=== PATIENT | female | born 1950 | race Caucasian/White ===

== ENCOUNTER → 2016-08-01 | Outpatient (CLI) | payer OTHER ==
[~2016-08-01] MED LIST: MULT-974 PO; OMEP20CA12 PO
--- OUTSIDE RECORDS SUMMARY | 2016-08-01 09:31 | XMS REPORT | Continuity of Care Document ---
Author Author [facility] Organization [facility] Address Unknown Phone Unavailable Support Name Relationship Address Phone ANAND CLAUDIO MD Caregiver [address], [address] [place], [place] [phone] REJI OSCAR Next Of Kin [address] [place] [address] Insurance Providers Payer Name Policy Number Subscriber Name Relationship R [id number] Shirlene Oscar 20 Self / Same As Patient Advance Directives Directive Response Recorded Date/Time Advance Directives No 07/13/14 7:25am Health Care Power of Director [employer] No 07/13/14 7:25am Resuscitation Status Full Code 07/13/14 7:25am Problems No known problems or medical conditions. Medications Medication Dose Route Sig Days/Qty Instructions Order Date Discontinued Date Status Omeprazole 20 Mg PO DAILY 30 Qty 07/13/14 07/13/14 Discontinued Multivitamin 1 Each PO DAILY 07/13/14 Active Social History Social History Problem Response Recorded Date/Time Recent Foreign Travel No 07/13/2014 7:25am Smoking Status Never a Smoker 07/13/2014 7:30am Do you dip or chew tobacco? No 07/13/2014 7:30am Query Response Start Date Stop Date Smoking Status Never a Smoker Hospital Discharge Instructions No hospital discharge instructions. Plan of Care No plan of care. Functional Status No functional status results. Allergies, Adverse Reactions, Alerts Allergen Type Severity Reaction Status Last Updated No Known Drug Allergies Active 07/13/14 Immunizations No immunization records. Vital Signs Acute Vital Signs Vital Response Date/Time Temperature (Fahrenheit) 97.4 degrees F (97.6 - 99.5) Temperature (Calculated Celsius) 36.37251 degrees C (36.4 - 37.5) Temperature Source Tympanic Pulse Rate (adult) 56 bpm (60 - 90) Respiratory Rate 18 bpm (12 - 24) O2 Sat by Pulse Oximetry 98 % (88 - 100) Blood Pressure 116/59 mm Hg Pain Pain Intensity 0 Height (Feet) 5 feet Height (Inches) 2.00 inches Height (Calculated Centimeters) 157.390408 cm Weight (Pounds) 182 pounds Weight (Calculated Grams) 24929.812 gm Weight (Calculated Kilograms) 82.141709 kilograms Height 5 ft 2 in Weight 182 lb Body Mass Index 33.3 kg/m^2 Results No known relevant diagnostic tests, laboratory data and/or discharge summary. Procedures Procedure Status Date Provider(s) Diagnostic colonoscopy completed 07/13/14 NAAND CLAUDIO MD Esophagogastroduodenoscopy (EGD) completed 07/13/14 ANAND CLAUDIO MD Encounters Encounter Location Date/Time Registered [facility] 07/13/14 6:48am Registered Clinic [facility] 07/08/14 5:59am
--- NOTE | 2016-08-01 19:27 | Diagnostic Imaging Report ---
Bilateral screening mammogram. The current study was also evaluated with a Computer Aided Detection (CAD) system. INDICATION: Screening. No current complaints stated on the questionnaire. COMPARISON: 07/13/2015. FINDINGS: The breasts are composed of scattered fibroglandular densities. There are scattered benign-appearing calcifications. Allowing for technique and positional differences, no suspicious change is seen. IMPRESSION: No significant change. ACR BI-RADS Category 2: Benign findings. Result letter will be mailed to the patient. Note: At least 10% of breast cancer is not imaged by mammography. Dictated by: Dictated on workstation # [id number]
== END ==
LOC: RAD 09:27
PROVIDERS: ATTEND Nurse Practitioner Family
DX: Z12.31 Encounter for screening mammogram for malignant neoplasm of breast (principal)

== ENCOUNTER → 2017-08-14 | Outpatient (CLI) | payer MEDICARE, OTHER ==
--- NOTE | 2017-08-14 20:33 | Diagnostic Imaging Report ---
Digital mammogram bilateral screening This study was compared to the prior exam of 08/01/2016 to 02/11/2013. At this time, there are no current complaints. The current study was also evaluated with a Computer Aided Detection (CAD) system. The breasts do seem smaller than on the prior exam. Correlation with the patient's weight loss history would be recommended. There are scattered fibroglandular densities in both breasts which could obscure a lesion. In the medial aspect of the right breast approximately 4-5 MM from the nipple there is a small 4-5 MM linear area of increased density. There may be a corresponding area of increased density on the MLO view. The tomographic views are not convincing for malignancy in this area. Even so, I would recommend that a compression view of this area be obtained in the CC and ML projections for further study. Ultrasound of this portion of the breast should also be performed. The left breast is unchanged. IMPRESSION: Additional mammographic views and ultrasound of the right breast recommended for further study. ACR BI-RADS Category 0: Incomplete. (Needs additional imaging evaluation). Result letter will be mailed to the patient. Note: At least 10% of breast cancer is not imaged by mammography. Dictated by: Dictated on workstation # [id number]
== END ==
LOC: RAD 09:56
PROVIDERS: ATTEND Nurse Practitioner Family
DX: Z12.31 Encounter for screening mammogram for malignant neoplasm of breast (principal)
CPT/HCPCS: 77067

== ENCOUNTER → 2017-09-04 | Outpatient (CLI) | payer MEDICARE, OTHER ==
--- NOTE | 2017-09-04 14:44 | Diagnostic Imaging Report ---
Procedure; Digital mammogram, right diagnostic. Indication: Annual screening mammogram. The screening mammogram performed on 08/14/2017 noted a small 4-5 mm linear area of increased density in the medial aspect of the right breast. This finding is not as conspicuous on the compression view and this density cannot be identified with certainty on the true lateral view. This may be secondary to fibroglandular tissue. Even so, I would recommend ultrasound be performed for further study. Impression: Ultrasound was recommended for further evaluation of the right breast. ACR BI-RADS Category 0: Incomplete. (Needs additional imaging evaluation). Result letter will be mailed to the patient. Note: At least 10% of breast cancer is not imaged by mammography. Dictated by: Dictated on workstation # [id number]
== END ==
LOC: RAD 13:44
PROVIDERS: ATTEND Family Medicine
DX: R92.8 Other abnormal and inconclusive findings on diagnostic imaging of breast (principal)

== ENCOUNTER → 2017-10-17 | Outpatient (CLI) | payer MEDICARE, OTHER ==
--- NOTE | 2017-10-17 15:40 | Diagnostic Imaging Report ---
INDICATION: Cramping and vaginal bleeding. TECHNIQUE: Transabdominal and transvaginal pelvic sonography was performed. FINDINGS: The uterus measures 7.7 x 6.3 x 4.8 cm. The endometrial canal is distended by complex fluid, consistent with hematometra. No definite myometrial mass is seen. A discrete endometrial mass is not visualized. The ovaries were not visualized. There is a small amount of free fluid in the right adnexa. IMPRESSION: Complex fluid significantly distends the endometrial canal consistent with hematometra. This is likely owing to blood products. This could be owing to a cervical stenosis. Dictated by: Dictated on workstation # [id number]
== END ==
LOC: RAD 13:47
PROVIDERS: ATTEND Family Medicine
DX: N93.9 Abnormal uterine and vaginal bleeding, unspecified (principal)
CPT/HCPCS: 76830; 76856

== ENCOUNTER → 2018-02-06 | Outpatient (CLI) | payer MEDICARE, OTHER ==
--- NOTE | 2018-02-06 20:04 | Diagnostic Imaging Report ---
INDICATION: Right breast density. Patient presents for six-month followup. COMPARISON: Correlation is made with prior mammograms from 08/14/2017 and 09/04/2017. TECHNIQUE: 2D and 3D unilateral right diagnostic mammography was performed with computer-aided Detection (CAD) system. FINDINGS: There are scattered densities in the right breast. The area of density noted on the right MLO view is less prominent on today's study. This has the appearance of fibroglandular tissue. No mass is identified. Benign calcifications in the right breast are noted. Right axilla is unremarkable. IMPRESSION: Stable right mammogram. Area of density most likely represents fibroglandular tissues. Patient should return in six months for bilateral screening mammography. ACR BI-RADS Category 2: Benign findings. Result letter will be mailed to the patient. Note: At least 10% of breast cancer is not imaged by mammography. Dictated by: Dictated on workstation # [id number]
== END ==
LOC: RAD 12:07
PROVIDERS: ATTEND Nurse Practitioner Family
DX: R92.8 Other abnormal and inconclusive findings on diagnostic imaging of breast (principal)

== ENCOUNTER → 2019-02-04 | Outpatient (CLI) | payer MEDICARE, OTHER ==
--- NOTE | 2019-02-05 09:56 | Diagnostic Imaging Report ---
INDICATION: Routine screening. COMPARISON: 08/14/2017 and 08/01/2016. TECHNIQUE: 2D and 3D bilateral screening mammography was performed with CAD. FINDINGS: Scattered fibroglandular densities are identified bilaterally. There are benign calcifications bilaterally. No mass or malignant appearing microcalcifications are seen. The axillae are unremarkable. IMPRESSION: No mammographic features suspicious for malignancy are identified. ACR BI-RADS Category 2: Benign findings. Result letter will be mailed to the patient. Note: At least 10% of breast cancer is not imaged by mammography. Dictated by: Dictated on workstation # [id number]
== END ==
LOC: RAD 15:29
PROVIDERS: ATTEND Nurse Practitioner Family
DX: Z12.31 Encounter for screening mammogram for malignant neoplasm of breast (principal)
CPT/HCPCS: 77067

== ENCOUNTER → 2020-02-19 | Outpatient (CLI) | payer MEDICARE ==
--- NOTE | 2020-02-19 17:51 | Diagnostic Imaging Report ---
INDICATION: Routine screening. COMPARISON: Prior mammogram from 02/04/2019 and 08/14/2017. EXAMINATION: 2D and 3D bilateral screening mammography was performed with CAD. FINDINGS: Scattered fibroglandular densities are identified, bilaterally. The parenchymal pattern is stable. There are benign calcification, bilaterally. No mass or malignant appearing microcalcification is seen. Axillae are unremarkable. IMPRESSION: No mammographic feature suspicious for malignancy is identified. ACR BI-RADS Category 2: Benign findings. Result letter will be mailed to the patient. Note: At least 10% of breast cancer is not imaged by mammography. Dictated by: Dictated on workstation # [id number]
== END ==
LOC: RAD 10:03
PROVIDERS: ATTEND Nurse Practitioner Family
DX: Z12.31 Encounter for screening mammogram for malignant neoplasm of breast (principal)
CPT/HCPCS: 77063; 77067

== ENCOUNTER → 2020-04-22 | Outpatient (CLI) | payer MEDICARE ==
--- NOTE | 2020-04-22 17:20 | NUR ---
Notified patient of positive COVID and quarantine and isolation precautions. Answered questions.
== END ==
LOC: LABNPT 05:47
PROVIDERS: ATTEND Family Medicine
DX: U07.1 COVID-19 (principal)
CPT/HCPCS: 87635

== ENCOUNTER → 2021-02-20 | Outpatient (CLI) | payer MEDICARE, OTHER ==
--- NOTE | 2021-02-21 12:47 | Diagnostic Imaging Report ---
INDICATION: Routine screening. Comparison is made prior mammogram 02/19/2020 and 02/04/2019. 2-D and 3-D bilateral screening mammography was performed with CAD. Scattered fibroglandular densities are identified bilaterally. There are benign calcifications in both breasts. No mass or malignant-appearing microcalcifications are seen. Axillae are unremarkable. IMPRESSION: BI-RADS Category 2 No mammographic features suspicious for malignancy are identified. ACR BI-RADS Category 2: Benign findings. Result letter will be mailed to the patient. Note: At least 10% of breast cancer is not imaged by mammography. Dictated by: Dictated on workstation # [id number]
== END ==
LOC: RAD 15:00
PROVIDERS: ATTEND Nurse Practitioner Family
DX: Z12.31 Encounter for screening mammogram for malignant neoplasm of breast (principal)
CPT/HCPCS: 77063; 77067

== ENCOUNTER → 2021-11-30 | Outpatient (CLI) | payer MEDICARE, OTHER ==
--- NOTE | 2021-11-30 12:30 | Diagnostic Imaging Report ---
INDICATION: Right knee pain. TIME OF EXAM: 10:51 a.m. FINDINGS: Multiple views of the right knee were obtained. There is some mild medial compartmental joint space narrowing. Lateral compartment is maintained. Articular surfaces are smooth. No fracture, dislocation, or effusion is detected. IMPRESSION: Mild degenerative changes. No acute bony abnormality is detected. Dictated by: Dictated on workstation # [id number]
== END ==
LOC: ORTHO 10:10
PROVIDERS: ATTEND Orthopaedic Surgery
DX: M70.51 Other bursitis of knee, right knee (principal)
CPT/HCPCS: 20610; 73564

== ENCOUNTER 2022-04-11 06:32 | Outpatient (CLI) | payer MEDICARE, OTHER ==
[~2022-04-11] VITALS: Ht 160 cm; Wt 78.5 kg
[2022-04-11] MEDS ORDERED: OMEP20TA56 PO (08:50)
[2022-04-11] MEDS ORDERED: MULT-1136 PO (08:50)
[2022-04-11] MEDS ORDERED: POTA99CA PO (08:50)
[2022-04-11] MEDS ORDERED: ZINC50TA11 PO (08:50)
[2022-04-11] MEDS ORDERED: METO50TA7 PO (08:50)
[2022-04-11] MEDS ORDERED: MAGN250T31 PO (08:50)
[2022-04-11] MEDS ORDERED: ATOR10TA66 PO (08:50)
[2022-04-11] MEDS ORDERED: CHOL10004 PO (08:50)
[2022-04-11] MEDS ORDERED: UBID100C44 PO (08:50)
== END 2022-04-11 09:23 | disposition home or self-care (01) ==
LOC: PREOP 06:32
PROVIDERS: ATTEND Surgery
DX: Z01.818 Encounter for other preprocedural examination (principal)

== ENCOUNTER 2022-04-17 07:02 | Day surgery (SDC) | payer MEDICARE, OTHER ==
[~2022-04-17] VITALS: Ht 157.5 cm; Wt 78.5 kg
[~2022-04-17 07:02] MED LIST changes: +ATOR10TA66 PO; +CHOL10004 PO; +MAGN250T31 PO; +METO50TA7 PO; +MULT-1136 PO; +OMEP20TA56 PO; +POTA99CA PO; +UBID100C44 PO; +ZINC50TA11 PO
[2022-04-17] MEDS ORDERED: LACTATED RINGERS 1,000 ML IV STA (07:14)
[2022-04-17] MEDS ORDERED: HURRICAINE EXT TUBE (BENZOCAINE) XX PRN (07:15)
[2022-04-17 07:38] VITALS: BP 121/68
--- NOTE | 2022-04-17 09:58 | Progress Note-Pre Operative ---
Pre-Operative Progress Note Date of Available H&P: Apr 09, 2022 Date H&P Reviewed: Apr 17, 2022 Time H&P Reviewed: 09:58 History & Physical: H&P Reviewed, Patient Examed, No changes noted Pre-Operative Diagnosis: HX POLYPS, CHRONIC COUGH, GERD BILLY CARRILLO DO Apr 17, 2022 09:58
[2022-04-17] MEDS ORDERED: PROPOFOL INJECTION 50 ML IV ONE ×2 (10:36→11:05)
[2022-04-17] MEDS ORDERED: PANT40TA2 PO (11:18)
--- NOTE | 2022-04-17 11:18 | Anesthesia-General Post-Op ---
MAC Patient Condition Mental Status/LOC: Same as Preop Cardiovascular: Satisfactory Nausea/Vomiting: Absent Respiratory: Satisfactory Pain: Controlled Complications: Absent Post Op Complications Complications None Follow Up Care/Instructions Patient Instructions None needed. Anesthesiology Discharge Order Discharge Order Patient is doing well, no complaints, stable vital signs, no apparent adverse anesthesia problems. No complications reported per nursing. GAB GRANDA CRNA Apr 17, 2022 11:18
--- NOTE | 2022-04-17 11:19 | Discharge Inst-Simple/Standard ---
Discharge Inst-Standard Discharge Medications New, Converted or Re-Newed RX: Transmitted to Pharmacy Patient Instructions/Follow Up Plan of Care/Instructions/FU: 2 weeks Yasir Activity as Tolerated: Yes Discharge Diet: Regular Diet BILLY CARRILLO DO Apr 17, 2022 11:19
[2022-04-17 11:20] VITALS: BP 123/63
[2022-04-17 11:30] VITALS: BP 113/56
[2022-04-17 12:00] VITALS: BP 122/58
[2022-04-17 12:05] VITALS: BP 122/58
--- NOTE | 2022-04-17 15:18 | OPERATIVE REPORT ---
DATE OF SERVICE: 04/17/2022 PREOPERATIVE DIAGNOSES: History of colon polyps, cough and gastroesophageal reflux disease. POSTOPERATIVE DIAGNOSES: Gastric polyps, micro-vascularization of the rectum. PROCEDURE: EGD with biopsies and snare polypectomy x2 of the stomach polyps and colonoscopy with hot rectal biopsies. SURGEON: Billy Cooley DO ANESTHESIA: Per BOTTLE SORTER. ESTIMATED BLOOD LOSS: None. COMPLICATIONS: None. INDICATIONS: The patient is a 72-year-old female with history of polyps. She has had a chronic cough and gastroesophageal reflux disease. She also has a history of colon polyps. She understands risks and benefits of procedures and wished to proceed. Consent was signed in the chart. DESCRIPTION OF PROCEDURE: The patient was taken to the endoscopy suite, placed in left lateral recumbent position. Timeout was performed. Scope was inserted in the mouth, down the esophagus, stomach and into the duodenum without difficulty. No polyps, masses or ulcerations within the duodenum. Scope was slowly retracted back into the stomach where it was further insufflated. Multiple gastric polyps. Two larger polyps were present, which snare polypectomies were performed. A Man Net was used to remove them. Scope was reinserted into the stomach. There were no bleeding present. Biopsy of the antrum was obtained. Scope was retroflexed noting no other pathology. Scope was returned to its normal position, slowly withdrawn to distal esophagus. Biopsy of GE junction was obtained. Maybe some slight reflux esophagitis. Scope was slowly retracted back until completely removed. A digital rectal exam was performed. No palpable polyps, masses or ulcerations. Scope was inserted in the rectum, noting some micro vascularization of the rectum in an area that was most likely irritated from the rectal exam. Scope was inserted and advanced all the way to the cecum without difficulty. No polyps, masses or ulcerations within the cecum. Prep was adequate with irrigation and suction. Scope was slowly retracted back. No polyps, masses or ulcerations within the ascending, transverse, descending and sigmoid colon. Once in the rectum, scope was retroflexed noting no other pathology. Hot biopsies were obtained of this area for micro vascularization. Scope was then slowly retracted back to completely remove noting no other pathology. The patient tolerated procedure well without any complications. She was taken to recovery room in stable condition. RECOMMENDATIONS: The patient will be stopped omeprazole and start Protonix 40 mg daily. Await biopsy results. He will need repeat colonoscopy in 5 years due to history of colon polyps. Any issues before that be seen at that time. Also may need further evaluation at that time. Job ID: [id number] DocumentID: [id number] Dictated Date: 04/17/2022 11:23:11 Piano Instructor Date: 04/17/2022 15:18:05 Dictated By: BILLY COOLEY DO
== END 2022-04-17 12:05 | disposition home or self-care (01) ==
LOC: ENDO 07:02
PROVIDERS: ATTEND Surgery
DX: Z12.11 Encounter for screening for malignant neoplasm of colon (principal); K31.7 Polyp of stomach and duodenum; K21.00 Gastro-esophageal reflux disease with esophagitis, without bleeding; K62.1 Rectal polyp; Z28.311 Partially vaccinated for COVID-19

== ENCOUNTER → 2022-05-09 | Outpatient (CLI) | payer MEDICARE, OTHER ==
[~2022-05-09] MED LIST changes: +CATHETER FLUSH 10 ML SYR IV PRN; +HOLD METFORMIN - RECEIVED CONTRAST 20 ML VIAL IV SCH; +IOHEXOL 350 MG/ML 100 ML (OMNIPAQUE 350) VIAL IV ONE; +NS 100 ML (IVPB) BAG IV ONE; +PANT40TA2 PO
[2022-05-09 13:26] LABS: CREATININE SERUM 0.75 MG/DL (0.60-1.30)
--- NOTE | 2022-05-09 14:22 | Diagnostic Imaging Report ---
PROCEDURE: CT chest with contrast only. TECHNIQUE: Multiple contiguous axial images were obtained through the chest after administration of intravenous contrast. Auto Exposure Controls were utilized during the CT exam to meet ALARA standards for radiation dose reduction. INDICATION: Cough, chronic There are multiple highly suspicious masses present involving the lower lobes. The largest is in the right lower lobe involving the superior segment reaching approximately 3.9 x 3.3 cm and results in distortion of the right lower lobe bronchus centrally. Multiple left lower lobe masses are also present with the largest reaching 2.1 x 1.5 cm. Subcentimeter subpleural nodules are present in the lateral right middle lobe. Densely calcified lymph nodes are present in the right hilum with additional calcification noted adjacent to the right hilar structures and right lower lobe including within the right lower lobe superior segment mass. Below the diaphragm there are innumerable calcifications throughout the parenchyma of liver and spleen. There is no evidence of free fluid within the pleural or pericardial spaces. There are hypodense dense nodules in both lobes of thyroid gland measuring up to 1 cm. IMPRESSION: Although there is extensive granulomatous residua in the right hilum and right lower lobe with additional involvement of the liver and spleen, the irregular soft tissue masses involving both lower lobes with lesser involvement of the right middle lobe are highly suspicious for neoplasm and likely represent metastases. Clinical correlation is recommended. Bronchoscopy may be useful for assessment of right lower lobe lesion or percutaneous biopsy could be performed with CT guidance. Consideration could also be given to PET imaging for identification of extrathoracic lesions. Dictated by: Dictated on workstation # [id number]
== END ==
LOC: RAD 12:52
PROVIDERS: ATTEND Surgery
DX: R05.3 Chronic cough (principal)
CPT/HCPCS: 36415; 71260; 82565; 84520

== ENCOUNTER → 2022-06-04 | Outpatient (CLI) | payer MEDICARE, OTHER ==
[~2022-06-04] MED LIST changes: -CATHETER FLUSH 10 ML SYR IV PRN; -HOLD METFORMIN - RECEIVED CONTRAST 20 ML VIAL IV SCH; -IOHEXOL 350 MG/ML 100 ML (OMNIPAQUE 350) VIAL IV ONE; -NS 100 ML (IVPB) BAG IV ONE
--- NOTE | 2022-06-04 13:11 | Diagnostic Imaging Report ---
PET/CT. INDICATION: Lung mass EXAMINATION: After intravenous administration of 14.09 mCi of F18-FDG into the left antecubital fossa, a series of overlapping emission and transmission PET images was obtained. In the coronal, transaxial and sagittal planes, the area imaged extended from the skull base through the upper thighs. Height 5' 2". Weight 168 Blood glucose 107 There are no prior PET/CT examinations available for comparison. The CT chest exam performed on 05/09/2022 did note multiple highly suspicious masses involving both lungs. The largest of these masses was in the right infrahilar region and measured 3.9 x 3.3 cm. On this exam there are multiple hypermetabolic masses involving both lungs corresponding to the findings of the previous CT chest study.. The mass in the right infrahilar region has a maximum SUV of 19.49. The mass in the left infrahilar region has a max SUV of 12.89. In addition there are small hilar mediastinal and supraclavicular nodes. These have maximum SUVs in the 4-5 range. Furthermore the images through the upper abdomen reveal that there is a hypermetabolic focus within the vertebral body of L1. This has a maximum SUV of 15.85. All these findings should be considered neoplastic until proven otherwise. There is no other hypermetabolic activity to suggest the presence of malignancy. There is physiologic activity in the brain, the kidneys, the bowel and bladder. The CT images failed to show any sign of an acute abnormality. IMPRESSION: 1. There are multiple hypermetabolic masses involving the thorax as well as the vertebral body of L1. These findings should be considered neoplastic until proven otherwise. 2. There is no other hypermetabolic activity to suggest the presence of malignancy. 3. There is no sign of an acute abnormality. Dictated by: Dictated on workstation # [id number]
== END ==
LOC: RAD 08:21
PROVIDERS: ATTEND Surgery
DX: R91.8 Other nonspecific abnormal finding of lung field (principal); R22.2 Localized swelling, mass and lump, trunk
CPT/HCPCS: 78815; A9552

== ENCOUNTER 2022-06-20 09:40 | Outpatient (CLI) | payer MEDICARE, OTHER ==
[2022-06-19 11:40] VITALS: BP 124/76
[2022-06-20] VITALS (12 sets, daily range): BP systolic 101–128; BP diastolic 43–82
[~2022-06-20] VITALS: Ht 160 cm; Wt 78.5 kg
[2022-06-20 10:26] LABS: HEMATOCRIT 39 % (35-52); HEMOGLOBIN 12.9 g/dL (11.5-16.0); MEAN CORPUSCULAR HEMOGLOBIN 30 pg (25-34); MEAN CORPUSCULAR HGB CONC 33 g/dL (32-36); MEAN CORPUSCULAR VOLUME 92 fL (80-99); MEAN PLATELET VOLUME 9.5 fL (9.0-12.2); PLATELET COUNT 463 10^3/uL (130-400); WHITE BLOOD COUNT 8.1 10^3/uL (4.3-11.0)
[2022-06-20 10:44] LABS: INR 0.9 (0.8-1.4)
[2022-06-20] MEDS ORDERED: NS IV 1000 ML 1,000 ML IV STA (10:58)
[2022-06-20] MEDS ORDERED: LIDOCAINE 1% INJ 30 ML (XYLOCAINE) VIAL INJ ONE (11:00)
[2022-06-20] MEDS ORDERED: fentaNYL INJ 100 MCG/2 ML AMP IVP ONE (11:00)
[2022-06-20] MEDS ORDERED: MIDAZOLAM 2 MG/2 ML (VERSED) VIAL IVP ONE (11:00)
[2022-06-20] MEDS ORDERED: HYDROcodone/APAP 5 MG/325 MG (LORTAB) TAB PO PRN (12:15)
--- NOTE | 2022-06-20 12:38 | Diagnostic Imaging Report ---
INDICATION: Right lung mass. TECHNIQUE: All CT scans use one or more of the following dose optimizing techniques: Automated exposure control, MA and/or KvP adjustment based on patient size and exam type or iterative reconstruction. Patient was brought to the CT suite and placed on table in the prone position. Axial imaging through the chest was performed to evaluate appropriate entry site. Procedure was performed utilizing a conscious sedation with radiology nursing and constant patient monitoring. Patient was given a total of 50 mcg of fentanyl intravenously and 1 mg of Versed intravenously. Total procedure time was approximately 11 minutes. The right posterior thorax was prepped and draped in the usual sterile fashion. A small amount of 1% lidocaine was utilized for local anesthesia. Three core biopsies were obtained of the mass in the right lower lobe utilizing an 18-gauge Temno coaxial needle. BioSentry closure device was then utilized. Hemostasis was obtained using manual compression. Follow-up imaging after the procedure shows no complicating features. No pneumothorax is detected. IMPRESSION: Successful CT-guided core biopsy of the dominant mass in the right lower lobe, utilizing conscious sedation. Pathology results are currently pending. Dictated by: Dictated on workstation # [id number]
--- NOTE | 2022-06-20 14:50 | Diagnostic Imaging Report ---
INDICATION: Status post right lung biopsy. TIME OF EXAM: 1:49 p.m. FINDINGS: Single view of the chest demonstrates lungs to be without evidence of pneumothorax. There is no pleural fluid. Heart size is stable. IMPRESSION: No evidence of pneumothorax, status post right lung biopsy. Dictated by: Dictated on workstation # [id number]
--- NOTE | 2022-06-20 15:56 | Pre-Op Note & Conscious Sedat ---
Pre-Operative Progress Note Date of Available H&P: Jun 20, 2022 Date H&P Reviewed: Jun 20, 2022 Time H&P Reviewed: 10:00 Pre-Op Diagnosis: lung mass Conscious Sedation Pre-Proced Time 10:00 ASA Score 2 For ASA 3 and 4: Consider anesthesia and medical clearance. Also, for patients with a history of failed moderate sedation consider anesthesia. Airway Lungs Heart ASA score ASA 1: a normal healthy patient ASA 2: a patient with a mild systemic disease (mid diabetes, controlled hypertension, obesity ASA 3: a patient with a severe systemic disease that limits activity (angina, COPD, prior Myocardial infarction) ASA 4: a patient with an incapacitating disease that is a constant threat to life (CHF, renal failure) ASA 5: a moribund patient not expected to survive 24 hrs. (ruptured aneurysm) ASA 6: a declared brain- patient whose organs are being harvested. For emergent operations, add the letter E after the classification Mallampati Classification Grade 2 Sedation Plan Analgesia, Amnesia, Plan communicated to team members, Discussed options with patient/fam, Discussed risks with patient/fam The patient is an appropriate candidate to undergo the planned procedure, sedation, and anesthesia. The patient immediately re-assessed prior to indication. PRAVEEN VEGA MD Jun 20, 2022 15:55
== END 2022-06-20 14:40 ==
LOC: SDC 09:40
PROVIDERS: ATTEND Surgery
DX: R91.8 Other nonspecific abnormal finding of lung field (principal)
CPT/HCPCS: 71045; 77012; 85027; 85610; 85730; 99156; C2613; 36415

== ENCOUNTER 2022-07-10 08:53 | Outpatient (RCR) | payer MEDICARE, OTHER ==
[~2022-07-10] VITALS: Ht 157.5 cm; Wt 73.5 kg
[2022-07-10 10:31] LABS: BASOPHILS % (AUTO) 0 % (0-10); EOSINOPHILS % (AUTO) 1 % (0-10); HEMATOCRIT 35 % (35-52); HEMOGLOBIN 11.8 g/dL (11.5-16.0); LYMPHOCYTES # (AUTO) 0.8 10^3/uL (1.0-4.0); LYMPHOCYTES % (AUTO) 12 % (12-44); MEAN CORPUSCULAR HEMOGLOBIN 31 pg (25-34); MEAN CORPUSCULAR HGB CONC 33 g/dL (32-36); MEAN CORPUSCULAR VOLUME 92 fL (80-99); MEAN PLATELET VOLUME 9.3 fL (9.0-12.2); MONOCYTES # (AUTO) 0.7 10^3/uL (0.0-1.0); MONOCYTES % (AUTO) 9 % (0-12); NEUTROPHILS # (AUTO) 5.4 10^3/uL (1.8-7.8); NEUTROPHILS % (AUTO) 78 % (42-75); PLATELET COUNT 349 10^3/uL (130-400)
[2022-07-10 10:53] LABS: BILIRUBIN,TOTAL 0.4 MG/DL (0.1-1.0); CALCIUM 9.5 MG/DL (8.5-10.1); CREATININE SERUM 0.7 MG/DL (0.60-1.30); POTASSIUM 3.9 MMOL/L (3.6-5.0); TOTAL PROTEIN 7.1 GM/DL (6.4-8.2)
[2022-07-10] MEDS ORDERED: FAMOTIDINE 20MG/2ML IV (PEPCID) IV PRN (12:30)
[2022-07-10] MEDS ORDERED: PALONOSETRON HCL 0.25 MG, dexAMETHasone INJECTION 20 MG in NS (IVPB) 50 ML IV SCH (12:30)
[2022-07-10] MEDS ORDERED: NS IV 1000 ML (CANCER CTR) IV SCH (12:30)
[2022-07-10] MEDS ORDERED: HEParin (CENTRAL IV FLUSH) 500 UNIT/5 ML SYR IV PRN (12:30)
[2022-07-10] MEDS ORDERED: FOSAPREPITANT (CANCER CENTER) 150 MG in NS (IVPB) CANCER CENTER ONLY 150 ML IV SCH (12:30)
[2022-07-10] MEDS ORDERED: PACLITAXEL IV SCH (12:45)
[2022-07-10] MEDS ORDERED: D5W IV SCH (12:45)
[2022-07-10] MEDS ORDERED: NORMAL SALINE IV SCH (12:45)
[2022-07-10] MEDS ORDERED: CARBOPLATIN IV SCH (12:45)
[2022-07-24] MEDS ORDERED: METO50TA15 PO (13:16)
== END 2022-07-28 | disposition home or self-care (01) ==
LOC: ONC 08:53
PROVIDERS: ATTEND Internal Medicine Hematology & Oncology
DX: C54.1 Malignant neoplasm of endometrium (principal); E78.00 Pure hypercholesterolemia, unspecified
CPT/HCPCS: 80053; 85025; G0463; 36415; 99204

== ENCOUNTER 2022-07-26 10:51 | Day surgery (SDC) | payer MEDICARE, OTHER ==
[~2022-07-26] VITALS: Ht 152 cm; Wt 74.0 kg
[2022-07-26] VITALS (7 sets, daily range): BP systolic 96–136; BP diastolic 52–79
[~2022-07-26 10:51] MED LIST changes: +METO50TA15 PO
[2022-07-26] MEDS ORDERED: ceFAZolin INJECTION 2,000 MG in NS (IVPB) 50 ML IV ONE (11:00)
[2022-07-26] MEDS ORDERED: LACTATED RINGERS 1,000 ML IV PRN (11:00)
[2022-07-26] MEDS ORDERED: 0.9% SODIUM CHLORIDE PF INJ 20 ML VIAL ONE (12:37)
[2022-07-26] MEDS ORDERED: HEParin (CENTRAL IV FLUSH) 500 UNIT/5 ML SYR ONE (12:37)
[2022-07-26] MEDS ORDERED: BUP/EPI 0.25% 1:200,000 (MARCAINE) 30 ML VIAL ONE (12:37)
--- NOTE | 2022-07-26 13:10 | Progress Note-Pre Operative ---
Pre-Operative Progress Note Date of Available H&P: Jul 16, 2022 Date H&P Reviewed: Jul 26, 2022 Time H&P Reviewed: 12:51 History & Physical: H&P Reviewed, Patient Examed, No changes noted Pre-Operative Diagnosis: metastatic ovarian ca BILLY CARRILLO DO Jul 26, 2022 13:10
[2022-07-26] MEDS ORDERED: PROPOFOL INJECTION 50 ML IV ONE (13:15)
[2022-07-26] MEDS ORDERED: MIDAZOLAM 2 MG/2 ML (VERSED) VIAL ONE (13:15)
--- NOTE | 2022-07-26 13:57 | Anesthesia-General Post-Op ---
MAC Patient Condition Mental Status/LOC: Same as Preop Cardiovascular: Satisfactory Nausea/Vomiting: Absent Respiratory: Satisfactory Pain: Controlled Complications: Absent Post Op Complications Complications None Follow Up Care/Instructions Patient Instructions None needed. Anesthesiology Discharge Order Discharge Order Patient is doing well, no complaints, stable vital signs, no apparent adverse anesthesia problems. No complications reported per nursing. BYRON AIKEN CRNA Jul 26, 2022 13:57
--- NOTE | 2022-07-26 13:58 | Discharge Inst-Simple/Standard ---
Discharge Inst-Standard Patient Instructions/Follow Up Plan of Care/Instructions/FU: 2 weeks Yasir Activity as Tolerated: No Discharge Diet: Regular Diet Other Inst to Patient Follow up Appt: Make appointment for 2 week. Instructions: No lifting greater than 10 pounds. No strenuous activity. May shower in 24 hours, no tub bath or soaking. Use incentive spirometer at home as directed. No Smoking Skin/Wound Care: You have special glue over your incision that will fall off on it's own. Ice pack on 15 min and off 30 min and repeat for first 48 hours. This reduces swelling and discomfort. Symptoms to Report: Appetite Changes, Extremity Discoloration, Numbness/Tingling, Swelling Increased, Bleeding Excessive, Eyesight Changes, Pain Increased, Urine Color Change, Constipation(Persistent), Fever over 101 degree F, Pain/Pressure in chest, Urinating Difficulty, Cough Up/Vomit Blood, Heart Beat Irreg/Pounding, Pain/Pressure in jaw, Vaginal Bleeding Increase, Cramps in feet or legs, Lightheadedness, Pain/Pressure in shoulder, Diarrhea(Persistent), Memory Changes Suddenly, Questions/Concerns, Weight gain consecutive days, Dizziness/Fainting, Nausea/Vomiting, Shortness of Breath, Weight gain over 2 pounds If questions or concerns contact your physician Or seek help at emergency department. BILLY CARRILLO DO Jul 26, 2022 13:58
[2022-07-26] MEDS ORDERED: fentaNYL INJ 100 MCG/2 ML AMP IVP ONE (14:00)
[2022-07-26] MEDS ORDERED: morphine INJ 10 MG/ML 1ML (SYR OR VIAL) IVP ONE (14:00)
[2022-07-26] MEDS ORDERED: MEPERIDINE (DEMEROL) INJ 50 MG/ML IVP ONE (14:00)
[2022-07-26] MEDS ORDERED: ONDANSETRON 4 MG/2 ML (SDV) Z0FRAN IVP PRN (14:00)
--- NOTE | 2022-07-26 14:01 | Progress Note-Post Operative ---
Post-Operative Progess Note Surgeon (s)/Vp Genetic (s) Surgeon BILLY CARRILLO DO Vp Genetic: na Pre-Operative Diagnosis metastatic ovarian ca Post-Operative Diagnosis same Procedure & Operative Findings Date of Procedure 07/26/22 Procedure Performed/Findings PROCEDURE: Right internal jugular port placement using ultrasound guidance. COMPLICATIONS: None. INDICATIONS: The patient is a 72 year old female with metastatic ovarian cancer. Patient understands the risks and benefits of port placement and wished to proceed with the procedure. Consent was signed on the chart. PROCEDURE: The patient was taken to the operating suite, was prepped and draped in the sterile fashion. A surgical pause was performed. Ultrasound was used to locate the internal jugular vein. Once located anesthetic was infiltrated above it. Using micro-access kit, the right internal vein was accessed. Dark nonpulsatile blood was withdrawn. The wire was inserted. Fluoroscopy assured proper placement. The needle was removed. The micro-access dilator was advanced over the wire and the wire was removed. The regular wire was inserted and fluoroscopy assured proper placement. The wire was then secured. Local anesthetic was used to anesthetize from the neck for tunneling down to the right chest and for pocket creation. A 15 blade scalpel was used to make an incision over the right chest. Cautery was used to dissect down to the pectoral fascia. A pocket was created with blunt dissection. The dilator sheath was then advanced over the wire under fluoroscopy and the dilator and wire were removed. The Groshong catheter was inserted through the sheath and the sheath was then removed. The Groshong wire was removed. The catheter was then tunneled to the right chest pocket. Fluoroscopy was used to cut to length and this was then attached to the port which was then placed within the pocket. The port was then accessed without difficulty. It was then flushed with saline and then heparin. The subcutaneous tissues were then reapproximated using 3-0 Vicryl. The areas were then washed and dried. Skin Affix was placed over incision. The insertion point of the neck Skin Affix was placed over the incision. The patient tolerated the procedure well without complication and was taken to recovery room in stable condition. Chest x-ray is pending. Anesthesia Type mac c local Estimated Blood Loss Estimated blood loss (mL): minimal Specimens/Packing Specimens Removed BILLY Norton DO Jul 26, 2022 14:01
--- NOTE | 2022-07-26 14:39 | Diagnostic Imaging Report ---
INDICATION: Post port FINDINGS: The right IJ catheter tip projects over the lower SVC. No pneumothorax. No pleural fluid. IMPRESSION: Port catheter placed in the mid to lower SVC without apparent complication or acute abnormalities. Dictated by: Dictated on workstation # [id number]
--- NOTE | 2022-07-26 17:20 | Diagnostic Imaging Report ---
INDICATION: Central line placement IMPRESSION: 12 seconds of fluoroscopy were used in surgery by Dr. Borrero during Port-A-Cath placement. Two images were stored. The last image shows catheter tip projecting over the SVC. Dictated by: Dictated on workstation # [id number]
== END 2022-07-26 15:10 | disposition home or self-care (01) ==
LOC: SDC 10:51
PROVIDERS: ATTEND Surgery
DX: C56.9 Malignant neoplasm of unspecified ovary (principal); C54.1 Malignant neoplasm of endometrium; C78.01 Secondary malignant neoplasm of right lung; I87.2 Venous insufficiency (chronic) (peripheral)
CPT/HCPCS: 36561; 71045; 76000; 87081; C1788

== ENCOUNTER 2022-07-30 16:19 | Emergency (ER) | payer MEDICARE, OTHER ==
[~2022-07-30] VITALS: Ht 157.5 cm; Wt 73.5 kg
--- NOTE | 2022-07-30 16:40 | ED GU-Female ---
General Chief Complaint: - Reproductive Stated Complaint: BLADDER PROBLEMS Nursing Triage Note: PT AMB TO RM 7 WITH COMPLAINT OF NOT BEING ABLE TO EMPTY BLADDER. STATES SHE CAN "TINKLE" BUT BLADDER FEELS FULL. STATES HAD PORT PLACED LAST WEEK AND IS STARTING CHEMO TOMORROW FOR LUNG CANCER. HX OF UTERINE CANCER ROUGHLY 4 YEARS AGO. Source: patient, family Exam Limitations: no limitations History of Present Illness Date Seen by Provider: Jul 30, 2022 Time Seen by Provider: 16:30 Initial Comments 72-year-old female presents to the emergency department today for difficulty urinating and bladder fullness. Symptoms present for about 2 weeks. She states when she does urinate she only dribbles a little. It only happens a couple times a day. She does have some abdominal discomfort feeling as though she needs to urinate. No fevers chills nausea or vomiting. Notably she does have a remote history of endometrial cancer. She recently learned that this is likely recurrent and she had a port placed a couple of days ago in anticipation for chemotherapy to start tomorrow morning. She does have metastasis in her lungs" lumbar area." She is not quite sure where in the lumbar area. Regardless she denies any saddle anesthesia, weakness numbness or tingling of her lower extremities bilaterally. No loss of bowel control. Allergies and Home Medications Allergies Coded Allergies: No Known Drug Allergies (Unverified , 07/24/22) Patient Home Medication List Home Medication List Reviewed: Yes Atorvastatin Calcium (Atorvastatin Calcium) 10 Mg Tablet, 10 MG PO HS, (Reported) Entered as Reported by: ROSS COLVIN on 04/11/22 0850 Cholecalciferol (Vitamin D3) (Vitamin D3) 25 Mcg (1000 Unit) Tablet, 25 MCG PO DAILY, (Reported) Entered as Reported by: ROSS COLVIN on 04/11/22 0850 Magnesium (Magnesium) 250 Mg Tablet, 250 MG PO HS, (Reported) Entered as Reported by: ROSS COLVIN on 04/11/22 0850 Metoprolol Tartrate (Metoprolol Tartrate) 50 Mg Tablet, 50 MG PO DAILY, (Reported) Entered as Reported by: RICO FRIEDMAN on 07/24/22 1316 Multivitamin (Multivitamin) 1 Each Tablet, 1 EACH PO DAILY, (Reported) Entered as Reported by: ROSS COLVIN on 04/11/22 0850 Pantoprazole Sodium (Protonix) 40 Mg Tablet.dr, 40 MG PO DAILY Prescribed by: BILLY CARRILLO on 04/17/22 1118 Potassium Citrate (Potassium) 99 Mg Capsule, 99 MG PO DAILY, (Reported) Entered as Reported by: ROSS COLVIN on 04/11/22 0850 Pumpkin Seed Extract/Soy Germ (Azo Bladder Control Capsule) 300 Mg Capsule, 300 MG PO BID Prescribed by: KRIS LEGER MD on 07/30/22 1735 Ubidecarenone (Co Q-10) 100 Mg Capsule, 200 MG PO HS, (Reported) Entered as Reported by: ROSS COLVIN on 04/11/22 0850 Zinc Gluconate (Zinc) 50 Mg Tablet, 50 MG PO Q48H, (Reported) Entered as Reported by: ROSS COLVIN on 04/11/22 0850 Discontinued Medications Metoprolol Succinate (Metoprolol Succinate) 50 Mg Tab.er.24h, 25 MG PO BID, (Reported) Discontinued Reason: No Longer Taking Entered as Reported by: ROSS COLVIN on 04/11/22 0850 Review of Systems Review of Systems Constitutional: no symptoms reported EENTM: no symptoms reported Respiratory: no symptoms reported Cardiovascular: no symptoms reported Gastrointestinal: no symptoms reported Genitourinary: pain, urgency Musculoskeletal: no symptoms reported Skin: no symptoms reported Psychiatric/Neurological: No Symptoms Reported Endocrine: No Symptoms Reported Hematologic/Lymphatic: No Symptoms Reported Past Zjiecfx-Gcprnp-Oxtxbi Hx Patient Social History Tobacco Use?: No Use of E-Cig and/or Vaping dev: No Substance use?: No Alcohol Use?: No Pt feels they are or have been: No Immunizations Up To Date First/Initial COVID19 Vaccinat: 2020 Second COVID19 Vaccination Pritesh: 2020 Third COVID19 Vaccination Date: 2021 Seasonal Allergies Seasonal Allergies: No Past Medical History Surgeries: Yes (GLAND REMOVAL) Hysterectomy, Tonsillectomy Respiratory: Yes (CHRONIC COUGH AND WHEEZING FROM LUNG CA, CHILDHOOD ASTHMA) Asthma Currently Using CPAP: No Currently Using BIPAP: No Cardiac: Yes Irregular Heartbeat Neurological: No Female Reproductive Disorders: Ovarian Cyst MANAGER DIALYSIS History: Hysterectomy Genitourinary: No (IRREGULAR URINE PATTERN IN THE LAST MONTH) Gastrointestinal: Yes Gastroesophageal Reflux, Polyps Musculoskeletal: No Endocrine: No HEENT: No Cancer: Yes Bone, Lung, Uterine What Type of Treatment Did You: Radiation, Surgical Intervention Psychosocial: No Integumentary: No Blood Disorders: No Family Medical History Reviewed Nursing Family Hx No Pertinent Family Hx Physical Exam Vital Signs Vital Signs - First Documented 07/30/22 16:25 Temp 35.9 Pulse 63 Resp 17 B/P (MAP) 147/74 (98) Pulse Ox 96 O2 Delivery Room Air Capillary Refill : Less Than 3 Seconds Height, Weight, BMI Height: 5'2.00" Weight: 182lbs. oz. 82.278396wl; 29.00 BMI Method: General Appearance: WD/WN, no apparent distress HEENT: normal ENT inspection, pharynx normal Neck: non-tender, supple, normal inspection Cardiovascular: regular rate, rhythm, no edema, no gallop, no JVD, no murmur Respiratory: chest non-tender, lungs clear, normal breath sounds, no respiratory distress, no accessory muscle use Gastrointestinal: normal bowel sounds, soft, no organomegaly, tenderness (Mild tenderness to palpation in suprapubic region with voluntary guarding. No rebound tenderness. No mass organomegaly. No skin changes) Back: normal inspection, no CVA tenderness, no vertebral tenderness Extremities: normal range of motion, non-tender, normal inspection, no pedal edema Neurologic/Psychiatric: alert, normal mood/affect, oriented x 3 Skin: normal color, warm/dry Progress/Results/Core Measures Suspected Sepsis SIRS Temperature: Pulse: 63 Respiratory Rate: 17 Laboratory Tests 07/30/22 16:59: White Blood Count 6.6 Blood Pressure 147 /74 Mean: 98 Laboratory Tests 07/30/22 16:59: Creatinine 0.65, Platelet Count 381, Total Bilirubin 0.2 Results/Orders Lab Results Laboratory Tests Test 07/30/22 16:38 07/30/22 16:59 Range/Units Urine Color YELLOW Urine Clarity CLEAR Urine pH 7.5 5-9 Urine Specific [place] 1.020 1.016-1.022 Urine Protein NEGATIVE NEGATIVE Urine Glucose (UA) NEGATIVE NEGATIVE Urine Ketones 1+ H NEGATIVE Urine Nitrite NEGATIVE NEGATIVE Urine Bilirubin NEGATIVE NEGATIVE Urine Urobilinogen 0.2 < = 1.0 MG/DL Urine Leukocyte Esterase NEGATIVE NEGATIVE Urine RBC (Auto) NEGATIVE NEGATIVE Urine RBC NONE /HPF Urine WBC 0-2 /HPF Urine Squamous Epithelial Cells NONE /HPF Urine Crystals PRESENT H /LPF Urine Amorphous Sediment LARGE SOLOMON PHOSPHATE H /LPF Urine Bacteria NEGATIVE /HPF Urine Casts NONE /LPF Urine Mucus NEGATIVE /LPF Urine Culture Indicated NO White Blood Count 6.6 4.3-11.0 10^3/uL Red Blood Count 3.66 L 3.80-5.11 10^6/uL Hemoglobin 11.3 L 11.5-16.0 g/dL Hematocrit 33 L 35-52 % Mean Corpuscular Volume 90 80-99 fL Mean Corpuscular Hemoglobin 31 25-34 pg Mean Corpuscular Hemoglobin Concent 34 32-36 g/dL Red Cell Distribution Width 14.3 10.0-14.5 % Platelet Count 381 130-400 10^3/uL Mean Platelet Volume 9.2 9.0-12.2 fL Immature Granulocyte % (Auto) 0 % Neutrophils (%) (Auto) 74 42-75 % Lymphocytes (%) (Auto) 15 12-44 % Monocytes (%) (Auto) 8 0-12 % Eosinophils (%) (Auto) 2 0-10 % Basophils (%) (Auto) 1 0-10 % Neutrophils # (Auto) 4.9 1.8-7.8 10^3/uL Lymphocytes # (Auto) 1.0 1.0-4.0 10^3/uL Monocytes # (Auto) 0.5 0.0-1.0 10^3/uL Eosinophils # (Auto) 0.2 0.0-0.3 10^3/uL Basophils # (Auto) 0.0 0.0-0.1 10^3/uL Immature Granulocyte # (Auto) 0.0 0.0-0.1 10^3/uL Sodium Level 131 L 135-145 MMOL/L Potassium Level 4.2 3.6-5.0 MMOL/L Chloride Level 97 L 98-107 MMOL/L Carbon Dioxide Level 22 21-32 MMOL/L Anion Gap 12 5-14 MMOL/L Blood Urea Nitrogen 13 7-18 MG/DL Creatinine 0.65 0.60-1.30 MG/DL Estimat Glomerular Filtration Rate 95 BUN/Creatinine Ratio 20 Glucose Level 109 H 70-105 MG/DL Calcium Level 9.4 8.5-10.1 MG/DL Corrected Calcium 9.6 8.5-10.1 MG/DL Total Bilirubin 0.2 0.1-1.0 MG/DL Aspartate Amino Transf (AST/SGOT) 40 H 5-34 U/L Alanine Aminotransferase (ALT/SGPT) 45 0-55 U/L Alkaline Phosphatase 123 40-136 U/L Total Protein 6.8 6.4-8.2 GM/DL Albumin 3.8 3.2-4.5 GM/DL My Orders Orders - KRIS LEGER DO Comprehensive Metabolic Panel (07/30/22 16:36) Ua Culture If Indicated (07/30/22 16:36) Cbc With Automated Diff (07/30/22 16:36) Vital Signs/I&O Capillary Refill : Less Than 3 Seconds Blood Pressure Mean: 98 Departure Communication (Admissions) Patient is hemodynamically stable. Medication urinary tract infection. Bladder scan at bedside showed no residual urine after she urinated to provide a sample here. I think she is likely having bladder spasms. This may be related to some intra-abdominal tumors return call. She starts chemotherapy tomorrow. We will provide supportive care at this time. Discharged in stable condition. Impression Primary Impression: Urinary urgency Disposition: 01 HOME, SELF-CARE Condition: Stable Departure-Patient Inst. Referrals: BO LUCIANO MD (PCP/Family) Primary Care Physician Add. Discharge Instructions: Take the Azo pills as prescribed as needed in case this is related to bladder spasms. There was no urine in your bladder on bladder scan. There is no indication for a urinary tract infection. Is possible that your bladder is irri tated by your intra-abdominal tumors or this pain may be from something else altogether. Regardless it does not seem that there is an emergent cause for your symptoms at this time. Return to the emergency department for any severe concerns. Follow-up with your primary doctor for any nonemergent needs. All discharge instructions reviewed with patient and/or family. Voiced unders tanding. Scripts Pumpkin Seed Extract/Soy Germ (Azo Bladder Control Capsule) 300 Mg Capsule 300 MG PO BID for Spasms for 3 Days, #9 CAP Prov: KRIS LEGER DO 07/30/22 KRIS LEGER DO Jul 30, 2022 16:40
[2022-07-30 16:47] LABS: BILIRUBIN,URINE NEGATIVE (NEGATIVE); CLARITY,URINE CLEAR; COLOR,URINE YELLOW; GLUCOSE, URINE (UA) NEGATIVE (NEGATIVE); KETONES,URINE 1+ (NEGATIVE); LEUKOCYTE ESTERASE ,URINE NEGATIVE (NEGATIVE); NITRITE,URINE NEGATIVE (NEGATIVE); PH,URINE 7.5 (5-9); PROTEIN,URINE NEGATIVE (NEGATIVE)
[2022-07-30 16:58] LABS: AMORPHOUS SEDIMENT,UR LARGE AMOR PHOSPHATE /LPF; BACTERIA,URINE NEGATIVE /HPF; WBC,URINE 0-2 /HPF
[2022-07-30 17:07] LABS: BASOPHILS % (AUTO) 1 % (0-10); EOSINOPHILS # (AUTO) 0.2 10^3/uL (0.0-0.3); EOSINOPHILS % (AUTO) 2 % (0-10); HEMATOCRIT 33 % (35-52); HEMOGLOBIN 11.3 g/dL (11.5-16.0); LYMPHOCYTES % (AUTO) 15 % (12-44); MEAN CORPUSCULAR HEMOGLOBIN 31 pg (25-34); MEAN CORPUSCULAR HGB CONC 34 g/dL (32-36); MEAN CORPUSCULAR VOLUME 90 fL (80-99); MEAN PLATELET VOLUME 9.2 fL (9.0-12.2); MONOCYTES # (AUTO) 0.5 10^3/uL (0.0-1.0); MONOCYTES % (AUTO) 8 % (0-12); NEUTROPHILS # (AUTO) 4.9 10^3/uL (1.8-7.8); NEUTROPHILS % (AUTO) 74 % (42-75); PLATELET COUNT 381 10^3/uL (130-400); WHITE BLOOD COUNT 6.6 10^3/uL (4.3-11.0)
[2022-07-30 17:19] LABS: ALBUMIN 3.8 GM/DL (3.2-4.5)
[2022-07-30 17:20] LABS: POTASSIUM 4.2 MMOL/L (3.6-5.0)
[2022-07-30 17:21] LABS: CALCIUM 9.4 MG/DL (8.5-10.1)
[2022-07-30 17:22] LABS: TOTAL PROTEIN 6.8 GM/DL (6.4-8.2)
[2022-07-30 17:24] LABS: BILIRUBIN,TOTAL 0.2 MG/DL (0.1-1.0)
[2022-07-30 17:26] LABS: CREATININE SERUM 0.65 MG/DL (0.60-1.30)
[2022-07-30] MEDS ORDERED: PUMP300C PO (17:35)
[2022-07-30 17:45] VITALS: BP 142/78
== END 2022-07-30 17:44 | disposition home or self-care (01) ==
LOC: EDUNIT# 16:19 → ER 16:21
DX: N39.0 Urinary tract infection, site not specified (principal)
CPT/HCPCS: 36415; 80053; 81000; 85025

== ENCOUNTER 2022-08-22 08:56 | Outpatient (RCR) | payer MEDICARE, OTHER ==
[2022-08-08 11:24] LABS: BASOPHILS % (AUTO) 1 % (0-10); EOSINOPHILS # (AUTO) 0.1 10^3/uL (0.0-0.3); EOSINOPHILS % (AUTO) 3 % (0-10); HEMATOCRIT 32 % (35-52); HEMOGLOBIN 10.8 g/dL (11.5-16.0); LYMPHOCYTES # (AUTO) 0.6 10^3/uL (1.0-4.0); LYMPHOCYTES % (AUTO) 18 % (12-44); MEAN CORPUSCULAR HEMOGLOBIN 31 pg (25-34); MEAN CORPUSCULAR HGB CONC 33 g/dL (32-36); MEAN CORPUSCULAR VOLUME 93 fL (80-99); MEAN PLATELET VOLUME 9.4 fL (9.0-12.2); MONOCYTES # (AUTO) 0.3 10^3/uL (0.0-1.0); MONOCYTES % (AUTO) 10 % (0-12); NEUTROPHILS # (AUTO) 2.1 10^3/uL (1.8-7.8); NEUTROPHILS % (AUTO) 67 % (42-75); PLATELET COUNT 309 10^3/uL (130-400)
[2022-08-08 11:54] LABS: BILIRUBIN,TOTAL 0.3 MG/DL (0.1-1.0); CALCIUM 9.5 MG/DL (8.5-10.1); CREATININE SERUM 0.67 MG/DL (0.60-1.30)
[2022-08-15 10:56] LABS: BASOPHILS # (AUTO) 0.1 10^3/uL (0.0-0.1); BASOPHILS % (AUTO) 2 % (0-10); EOSINOPHILS # (AUTO) 0.1 10^3/uL (0.0-0.3); EOSINOPHILS % (AUTO) 3 % (0-10); HEMATOCRIT 36 % (35-52); HEMOGLOBIN 11.8 g/dL (11.5-16.0); LYMPHOCYTES # (AUTO) 0.8 10^3/uL (1.0-4.0); LYMPHOCYTES % (AUTO) 29 % (12-44); MEAN CORPUSCULAR HEMOGLOBIN 31 pg (25-34); MEAN CORPUSCULAR HGB CONC 33 g/dL (32-36); MEAN CORPUSCULAR VOLUME 94 fL (80-99); MEAN PLATELET VOLUME 8.8 fL (9.0-12.2); MONOCYTES # (AUTO) 0.5 10^3/uL (0.0-1.0); NEUTROPHILS # (AUTO) 1.3 10^3/uL (1.8-7.8); NEUTROPHILS % (AUTO) 47 % (42-75); PLATELET COUNT 350 10^3/uL (130-400); WHITE BLOOD COUNT 2.7 10^3/uL (4.3-11.0)
[2022-08-15 10:59] LABS: MONOCYTES % (AUTO) 18 % (0-12)
[2022-08-15 11:20] LABS: ALBUMIN 4.1 GM/DL (3.2-4.5); BILIRUBIN,TOTAL 0.3 MG/DL (0.1-1.0); CALCIUM 9.6 MG/DL (8.5-10.1); CREATININE SERUM 0.71 MG/DL (0.60-1.30); POTASSIUM 4.1 MMOL/L (3.6-5.0); TOTAL PROTEIN 7.2 GM/DL (6.4-8.2)
[~2022-08-22 08:56] MED LIST changes: +CARBOPLATIN IV SCH; +D5W IV SCH; +FAMOTIDINE 20MG/2ML IV (PEPCID) IV PRN; +FOSAPREPITANT (CANCER CENTER) 150 MG in NS (IVPB) CANCER CENTER ONLY 150 ML IV SCH; +HEParin (CENTRAL IV FLUSH) 500 UNIT/5 ML SYR IV PRN; +NORMAL SALINE IV SCH; +NS IV 1000 ML (CANCER CTR) IV SCH; +PACLITAXEL IV SCH; +PALONOSETRON HCL 0.25 MG, dexAMETHasone INJECTION 20 MG in NS (IVPB) 50 ML IV SCH; +PUMP300C PO; +diphenhydrAMINE 50 MG/ML INJ (BENADRYL) ONE
[2022-08-22 09:21] LABS: BASOPHILS # (AUTO) 0.1 10^3/uL (0.0-0.1); BASOPHILS % (AUTO) 1 % (0-10); EOSINOPHILS # (AUTO) 0.1 10^3/uL (0.0-0.3); EOSINOPHILS % (AUTO) 2 % (0-10); HEMATOCRIT 35 % (35-52); HEMOGLOBIN 11.7 g/dL (11.5-16.0); LYMPHOCYTES % (AUTO) 15 % (12-44); MEAN CORPUSCULAR HEMOGLOBIN 31 pg (25-34); MEAN CORPUSCULAR HGB CONC 34 g/dL (32-36); MEAN CORPUSCULAR VOLUME 92 fL (80-99); MEAN PLATELET VOLUME 9.1 fL (9.0-12.2); MONOCYTES # (AUTO) 0.7 10^3/uL (0.0-1.0); MONOCYTES % (AUTO) 10 % (0-12); NEUTROPHILS % (AUTO) 72 % (42-75); PLATELET COUNT 278 10^3/uL (130-400); WHITE BLOOD COUNT 6.9 10^3/uL (4.3-11.0)
[2022-08-22 09:39] LABS: ALBUMIN 3.9 GM/DL (3.2-4.5); BILIRUBIN,TOTAL 0.3 MG/DL (0.1-1.0); CALCIUM 9.3 MG/DL (8.5-10.1); CREATININE SERUM 0.67 MG/DL (0.60-1.30); POTASSIUM 4.3 MMOL/L (3.6-5.0); TOTAL PROTEIN 6.6 GM/DL (6.4-8.2)
[2022-08-22] MEDS ORDERED: diphenhydrAMINE 50 MG/ML INJ (BENADRYL) IV PRN (10:00)
[2022-08-22] MEDS ORDERED: morphine INJ 4 MG/ML 1 ML (VIAL/SYRINGE) ONE (10:47)
== END 2022-08-28 | disposition home or self-care (01) ==
LOC: ONC 08:56
PROVIDERS: ATTEND Internal Medicine Hematology & Oncology
DX: Z51.11 Encounter for antineoplastic chemotherapy (principal); Z45.2 Encounter for adjustment and management of vascular access device; C54.1 Malignant neoplasm of endometrium; E78.00 Pure hypercholesterolemia, unspecified
CPT/HCPCS: 96367; 96375; 96413; 96415; 96417; G0463; 36415; 36591; 80053; 85025; 96360; 96361; 99213

== ENCOUNTER 2022-09-04 08:45 | Outpatient (RCR) | payer MEDICARE, OTHER ==
[2022-08-29 10:15] LABS: BASOPHILS % (AUTO) 1 % (0-10); EOSINOPHILS # (AUTO) 0.2 10^3/uL (0.0-0.3); EOSINOPHILS % (AUTO) 3 % (0-10); HEMATOCRIT 35 % (35-52); HEMOGLOBIN 11.8 g/dL (11.5-16.0); LYMPHOCYTES # (AUTO) 0.7 10^3/uL (1.0-4.0); LYMPHOCYTES % (AUTO) 13 % (12-44); MEAN CORPUSCULAR HEMOGLOBIN 32 pg (25-34); MEAN CORPUSCULAR HGB CONC 34 g/dL (32-36); MEAN CORPUSCULAR VOLUME 93 fL (80-99); MEAN PLATELET VOLUME 9.3 fL (9.0-12.2); MONOCYTES # (AUTO) 0.5 10^3/uL (0.0-1.0); MONOCYTES % (AUTO) 8 % (0-12); NEUTROPHILS # (AUTO) 4.2 10^3/uL (1.8-7.8); NEUTROPHILS % (AUTO) 75 % (42-75); PLATELET COUNT 231 10^3/uL (130-400); WHITE BLOOD COUNT 5.6 10^3/uL (4.3-11.0)
[2022-08-29 11:04] LABS: ALBUMIN 3.9 GM/DL (3.2-4.5); BILIRUBIN,TOTAL 0.3 MG/DL (0.1-1.0); CALCIUM 9.5 MG/DL (8.5-10.1); CREATININE SERUM 0.74 MG/DL (0.60-1.30); POTASSIUM 4.3 MMOL/L (3.6-5.0); TOTAL PROTEIN 6.9 GM/DL (6.4-8.2)
[~2022-09-04 08:45] MED LIST changes: +CARBOPLATIN IV SCH; +D5W IV SCH; +FAMOTIDINE 20MG/2ML IV (PEPCID) IV PRN; +FOSAPREPITANT (CANCER CENTER) 150 MG in NS (IVPB) CANCER CENTER ONLY 150 ML IV SCH; +HEParin (CENTRAL IV FLUSH) 500 UNIT/5 ML SYR IV PRN; -IOHEXOL 350 MG/ML 100 ML (OMNIPAQUE 350) VIAL IV ONE; +NORMAL SALINE IV SCH; -NS 100 ML (IVPB) BAG IV ONE; +NS IV 1000 ML (CANCER CTR) IV SCH; +PACLITAXEL IV SCH; +PALONOSETRON HCL 0.25 MG, dexAMETHasone INJECTION 20 MG in NS (IVPB) 50 ML IV SCH; +diphenhydrAMINE 50 MG/ML INJ (BENADRYL) IV PRN
[2022-09-04 09:15] LABS: BASOPHILS % (AUTO) 1 % (0-10); EOSINOPHILS # (AUTO) 0.1 10^3/uL (0.0-0.3); EOSINOPHILS % (AUTO) 2 % (0-10); HEMATOCRIT 33 % (35-52); HEMOGLOBIN 11.2 g/dL (11.5-16.0); LYMPHOCYTES # (AUTO) 0.9 10^3/uL (1.0-4.0); LYMPHOCYTES % (AUTO) 15 % (12-44); MEAN CORPUSCULAR HEMOGLOBIN 31 pg (25-34); MEAN CORPUSCULAR HGB CONC 34 g/dL (32-36); MEAN CORPUSCULAR VOLUME 93 fL (80-99); MEAN PLATELET VOLUME 9.1 fL (9.0-12.2); MONOCYTES # (AUTO) 0.4 10^3/uL (0.0-1.0); MONOCYTES % (AUTO) 7 % (0-12); NEUTROPHILS # (AUTO) 4.1 10^3/uL (1.8-7.8); NEUTROPHILS % (AUTO) 74 % (42-75); PLATELET COUNT 298 10^3/uL (130-400); WHITE BLOOD COUNT 5.5 10^3/uL (4.3-11.0)
[2022-09-04 09:44] LABS: ALBUMIN 3.8 GM/DL (3.2-4.5); BILIRUBIN,TOTAL 0.3 MG/DL (0.1-1.0); CALCIUM 9.3 MG/DL (8.5-10.1); CREATININE SERUM 0.65 MG/DL (0.60-1.30); POTASSIUM 4.2 MMOL/L (3.6-5.0); TOTAL PROTEIN 6.7 GM/DL (6.4-8.2)
== END 2022-09-17 10:23 | disposition home or self-care (01) ==
LOC: ONC 08:45
PROVIDERS: ATTEND Internal Medicine Hematology & Oncology
DX: C54.1 Malignant neoplasm of endometrium (principal); E78.00 Pure hypercholesterolemia, unspecified
CPT/HCPCS: 80053; 85025; G0463; 36591; 96360; 96361; 96367; 96375; 96413; 96415; 96417; 99213

== ENCOUNTER → 2022-09-04 | Outpatient (CLI) | payer MEDICARE, OTHER ==
[~2022-09-04] MED LIST changes: -CARBOPLATIN IV SCH; -D5W IV SCH; -FAMOTIDINE 20MG/2ML IV (PEPCID) IV PRN; -FOSAPREPITANT (CANCER CENTER) 150 MG in NS (IVPB) CANCER CENTER ONLY 150 ML IV SCH; -HEParin (CENTRAL IV FLUSH) 500 UNIT/5 ML SYR IV PRN; +IOHEXOL 350 MG/ML 100 ML (OMNIPAQUE 350) VIAL IV ONE; -NORMAL SALINE IV SCH; +NS 100 ML (IVPB) BAG IV ONE; -NS IV 1000 ML (CANCER CTR) IV SCH; -PACLITAXEL IV SCH; -PALONOSETRON HCL 0.25 MG, dexAMETHasone INJECTION 20 MG in NS (IVPB) 50 ML IV SCH; -diphenhydrAMINE 50 MG/ML INJ (BENADRYL) ONE
--- NOTE | 2022-09-04 17:52 | Diagnostic Imaging Report ---
PROCEDURE: CT chest, abdomen, and pelvis with contrast. TECHNIQUE: Multiple contiguous axial images were obtained through the chest, abdomen, and pelvis after the administration of intravenous contrast. Auto Exposure Controls were utilized during the CT exam to meet ALARA standards for radiation dose reduction. INDICATION: Malignant neoplasm of endometrium. CT chest: There has been significant improvement in the spiculated masses involving both lungs. Largest remnant along the posterior right hilum and measures 3.8 x 2.5 cm. This was previously 3.9 x 3.3 cm. Just caudal to this there is an approximately 1 cm nodule in the inferior right hilum. In the left lower lobe lateral to the inferior pole of the hilum there is an approximately 1.8 x 1.1 cm residual lesion which previously measured 2.2 x 1.5 cm. There is linear atelectasis and/or scarring in both lower lobes. No new mass or infiltrate is identified and there is no evidence of pathologically enlarged adenopathy in the thorax. Calcified granulomas are again seen in both pulmonary ruchi. There is unchanged nodularity in both lobes of thyroid gland with the largest nodule reaching 0.8 cm in size in the left lobe. There has been interval placement of right anterior chest wall port. IMPRESSION: Reduction in bilateral pulmonary masses indicating good response to treatment. Consistent with incomplete resolution and continued clinical correlation and CT followup would be of use. CT abdomen and pelvis: Similar to the previous study, numerous calcified granulomas are seen throughout the hepatic and splenic parenchyma. No pancreatic, adrenal gland or renal abnormality is seen. Lytic lesion is seen within the anterior L1 vertebral body measuring 2.5 cm in diameter. There is no free fluid within the abdomen or pelvis. Unopacified urinary bladder is unremarkable. The uterus is surgically absent. Bladder is decompressed which limits assessment. There is no evidence of pathologically enlarged adenopathy. IMPRESSION: Focal lytic lesion at L1 vertebral body compatible with metastatic disease. Otherwise no acute abnormality or additional metastasis is appreciated. Dictated by: Dictated on workstation # [id number]
== END ==
LOC: RAD 15:06
PROVIDERS: ATTEND Internal Medicine Hematology & Oncology
DX: C54.1 Malignant neoplasm of endometrium (principal); R91.8 Other nonspecific abnormal finding of lung field
CPT/HCPCS: 71260; 74177

== ENCOUNTER 2022-11-07 16:07 | Outpatient (CLI) | payer MEDICARE, OTHER ==
[~2022-11-07] VITALS: Ht 157.5 cm; Wt 70.8 kg
[~2022-11-07 16:07] MED LIST changes: -CARBOPLATIN IV SCH; -D5W IV SCH; -FAMOTIDINE 20MG/2ML IV (PEPCID) IV PRN; -FOSAPREPITANT (CANCER CENTER) 150 MG in NS (IVPB) CANCER CENTER ONLY 150 ML IV SCH; -HEParin (CENTRAL IV FLUSH) 500 UNIT/5 ML SYR IV PRN; -NORMAL SALINE IV SCH; -NS IV 1000 ML (CANCER CTR) IV SCH; -PACLITAXEL IV SCH; -PALONOSETRON HCL 0.25 MG, dexAMETHasone INJECTION 20 MG in NS (IVPB) 50 ML IV SCH; -diphenhydrAMINE 50 MG/ML INJ (BENADRYL) IV PRN
[2022-11-08] MEDS ORDERED: ACHD5005 PO (14:21)
== END 2022-11-07 17:06 | disposition home or self-care (01) ==
LOC: PREOP 16:07
PROVIDERS: ATTEND Surgery
DX: Z01.818 Encounter for other preprocedural examination (principal); I87.2 Venous insufficiency (chronic) (peripheral)

== ENCOUNTER 2022-11-08 10:31 | Day surgery (SDC) | payer MEDICARE, OTHER ==
[2022-11-08] VITALS (8 sets, daily range): BP systolic 105–149; BP diastolic 39–68
[~2022-11-08] VITALS: Ht 157 cm; Wt 70.8 kg
[2022-11-08] MEDS ORDERED: ceFAZolin INJECTION 2,000 MG in NS (IVPB) 50 ML IV ONE (11:00)
--- NOTE | 2022-11-08 11:17 | Progress Note-Pre Operative ---
Pre-Operative Progress Note Date H&P Reviewed: Nov 08, 2022 Time H&P Reviewed: 11:17 History & Physical: H&P Reviewed, Patient Examed, No changes noted Pre-Operative Diagnosis: venous insufficiency, endometrial carcinoma BILLY CARRILLO DO Nov 08, 2022 11:17
[2022-11-08] MEDS ORDERED: LACTATED RINGERS 1,000 ML IV PRN (11:45)
[2022-11-08] MEDS ORDERED: HEParin (CENTRAL IV FLUSH) 500 UNIT/5 ML SYR ONE (12:07)
[2022-11-08] MEDS ORDERED: LIDOCAINE/EPI 1%-1:100,000 (XYLOCAINE) 20ML ONE (12:07)
[2022-11-08] MEDS ORDERED: 0.9% SODIUM CHLORIDE PF INJ 20 ML VIAL ONE (12:07)
--- NOTE | 2022-11-08 12:53 | Progress Note-Post Operative ---
Post-Operative Progess Note Surgeon (s)/Ward Aide (s) Surgeon BILLY CARRILLO DO Ward Aide: na Pre-Operative Diagnosis venous insufficiency, endometrial carcinoma Post-Operative Diagnosis same Procedure & Operative Findings Date of Procedure 11/08/22 Procedure Performed/Findings PROCEDURE: Left internal jugular port placement using ultrasound guidance. COMPLICATIONS: None. INDICATIONS: The patient is a 72 year old female needing port after previous was removed due to infection. Patient understands the risks and benefits of port placement and wished to proceed with the procedure. Consent was signed on the chart. PROCEDURE: The patient was taken to the operating suite, was prepped and draped in the sterile fashion. A surgical pause was performed. Ultrasound was used to locate the internal jugular vein. Once located anesthetic was infiltrated above it. Using micro-access kit, the right internal vein was accessed. Dark nonpulsatile blood was withdrawn. The wire was inserted. Fluoroscopy assured proper placement. The needle was removed. The micro-access dilator was advanced over the wire and the wire was removed. The regular wire was inserted and fluoroscopy assured proper placement. The wire was then secured. Local anesthetic was used to anesthetize from the neck for tunneling down to the right chest and for pocket creation. A 15 blade scalpel was used to make an incision over the left chest. Cautery was used to dissect down to the pectoral fascia. A pocket was created with blunt dissection. The dilator sheath was then advanced over the wire under fluoroscopy and the dilator and wire were removed. The Groshong catheter was inserted through the sheath and the sheath was then removed. The Groshong wire was removed. The catheter was then tunneled to the right chest pocket. Fluoroscopy was used to cut to length and this was then attached to the port which was then placed within the pocket. The port was then accessed without difficulty. It was then flushed with saline and then heparin. The subcutaneous tissues were then reapproximated using 3-0 Vicryl. The areas were then washed and dried. Skin Affix was placed over incision. The insertion point of the neck Skin Affix was placed over the incision. The patient tolerated the procedure well without complication and was taken to recovery room in stable condition. Chest x-ray is pending. Anesthesia Type mac c local Estimated Blood Loss Estimated blood loss (mL): minimal Specimens/Packing Specimens Removed BILLY Norton DO Nov 08, 2022 12:53
[2022-11-08] MEDS ORDERED: PROPOFOL INJECTION 50 ML IV ONE (12:54)
[2022-11-08] MEDS ORDERED: proPOfol 200 MG/20 ML (DIPRIVAN) VIAL IV ONE (12:54)
--- NOTE | 2022-11-08 12:55 | Discharge Inst-Simple/Standard ---
Discharge Inst-Standard Patient Instructions/Follow Up Plan of Care/Instructions/FU: 2 weeks Yasir Activity as Tolerated: No Discharge Diet: Regular Diet Other Inst to Patient Follow up Appt: Make appointment for 2 week. Instructions: No lifting greater than 10 pounds. No strenuous activity. May shower in 24 hours, no tub bath or soaking. Use incentive spirometer at home as directed. No Smoking Skin/Wound Care: You have special glue over your incision that will fall off on it's own. Place ice pack on 15 min and off 30 min and repeat for first 48 hours. This reduces swelling and discomfort. Symptoms to Report: Appetite Changes, Extremity Discoloration, Numbness/Tingling, Swelling Increased, Bleeding Excessive, Eyesight Changes, Pain Increased, Urine Color Change, Constipation(Persistent), Fever over 101 degree F, Pain/Pressure in chest, Urinating Difficulty, Cough Up/Vomit Blood, Heart Beat Irreg/Pounding, Pain/Pressure in jaw, Vaginal Bleeding Increase, Cramps in feet or legs, Lightheadedness, Pain/Pressure in shoulder, Diarrhea(Persistent), Memory Changes Suddenly, Questions/Concerns, Weight gain consecutive days, Dizziness/Fainting, Nausea/Vomiting, Shortness of Breath, Weight gain over 2 pounds If questions or concerns contact your physician Or seek help at emergency department. BILLY CARRILLO DO Nov 08, 2022 12:55
--- NOTE | 2022-11-08 13:03 | Anesthesia-General Post-Op ---
MAC Patient Condition Mental Status/LOC: Same as Preop Cardiovascular: Satisfactory Nausea/Vomiting: Absent Respiratory: Satisfactory Pain: Controlled Complications: Absent Post Op Complications Complications None Follow Up Care/Instructions Patient Instructions None needed. Anesthesiology Discharge Order Discharge Order Patient is doing well, no complaints, stable vital signs, no apparent adverse anesthesia problems. No complications reported per nursing. OMID LEE CRNA Nov 08, 2022 13:03
[2022-11-08] MEDS ORDERED: morphine INJ 10 MG/ML 1ML (SYR OR VIAL) IVP ONE (13:15)
[2022-11-08] MEDS ORDERED: ONDANSETRON 4 MG/2 ML (SDV) Z0FRAN IVP PRN (13:15)
--- NOTE | 2022-11-08 13:22 | Diagnostic Imaging Report ---
INDICATION: Port-A-Cath placement. TECHNIQUE: Intraoperative views were obtained during Port-A-Cath placement in Surgery. Two views were obtained with 17.6 seconds of fluoroscopy time used. FINDINGS: The intraoperative views demonstrate Port-A-Cath placement from a left IJ approach with the tip overlying the SVC. IMPRESSION: Intraoperative views demonstrate Port-A-Cath placement as above. Dictated by: Dictated on workstation # [id number]
--- NOTE | 2022-11-08 13:27 | Diagnostic Imaging Report ---
INDICATION: Post port placement. EXAMINATION: Chest from 11/08/2012. COMPARISON: 07/26/2022. FINDINGS: Single view of the chest. There is a new left-sided chest port with the tip in the SVC. Right chest port has been removed in the interval. The heart and pulmonary vasculature appear normal. Left hemidiaphragm is slightly elevated. There are no infiltrates. No effusions. IMPRESSION: 1. Uncomplicated appearance of the chest port. No pneumothorax. Dictated by: Dictated on workstation # [id number]
[2022-11-08] MEDS ORDERED: ACHD5005 PO (14:21)
== END 2022-11-08 14:15 | disposition home or self-care (01) ==
LOC: SDC 10:31
PROVIDERS: ATTEND Surgery
DX: C54.1 Malignant neoplasm of endometrium (principal); C78.01 Secondary malignant neoplasm of right lung; I87.2 Venous insufficiency (chronic) (peripheral); K21.9 Gastro-esophageal reflux disease without esophagitis
CPT/HCPCS: 36561; 71045; 76000; 87081; C1788